=== PATIENT | male | born 1965 | race African-American/Black ===

== ENCOUNTER 2018-02-01 18:00 | Emergency (ER) | payer OTHER ==
[~2018-02-01] VITALS: Ht 170.2 cm; Wt 68.0 kg
[2018-02-01 18:10] VITALS: BP 173/79; PULSE 89; RESP 18; TEMP 98.2; O2SAT 98
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
[2018-02-01] MEDS ORDERED: CYCLOBENZAPRINE HCL 10 MG TAB PO ONE (20:30)
[2018-02-01] MEDS ORDERED: IBUPROFEN 600 MG TAB PO ONE (20:30)
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
[2018-02-01] MEDS ORDERED: IBUP-232 PO (20:53)
[2018-02-01] MEDS ORDERED: ROBA500T PO (20:53)
== END 2018-02-01 21:04 | disposition home or self-care (01) ==
LOC: NEPD 18:00
DX: S16.1XXA Strain of muscle, fascia and tendon at neck level, initial encounter (principal); M47.9 Spondylosis, unspecified; V49.40XA Driver injured in collision with unspecified motor vehicles in traffic accident, initial encounter
CPT/HCPCS: 72125; 99283; L0150